=== PATIENT | male | born 1995 | race Caucasian/White ===

== ENCOUNTER 2025-02-01 09:09 | Emergency (ER) | payer SELFPAY ==
[~2025-02-01] VITALS: Ht 182.8 cm; Wt 90.7 kg
[~2025-02-01 09:09] MED LIST: AMOXICILLIN500 MG PO; NKHM; PERCOCET 325 MG1 TA7 PO; PREDNICOT10 MG PO
[2025-02-01 10:03] LABS: BASO % 0.6 % (0.0-1.0); EOS # 0.4 10*3/uL (0.0-0.4); HEMATOCRIT 42.4 % (42.0-52.0); MEAN CELL VOLUME 88.1 fl (80.0-94.0); MEAN CORPUSCULAR HGB 29.3 pg (27.0-31.0); MEAN CORPUSCULAR HGB CONC 33.3 g/dl (33.0-37.0); MEAN PLATELET VOLUME 9.7 fl (9.6-12.3); MONO # 0.3 10*3/uL (0.1-1.0); MONO % 6.1 % (3.0-9.0); NEUT % 56.2 % (47.0-73.0); PLATELET COUNT AUTOMATED 233 10*3/uL (130-400); RED BLOOD COUNT 4.81 10*6/uL (4.50-5.90); RED CELL DISTRI WIDTH 13.2 % (0-14.5); WHITE BLOOD COUNT 5.4 10*3/uL (4.8-10.8)
[2025-02-01 10:33] LABS: BUN 9 mg/dl (9-23); CHLORIDE 102 mmol/L (98-107); POTASSIUM 3.9 mmol/L (3.4-5.1)
[2025-02-01 11:13] LABS: BILIRUBIN Negative (Negative); BLOOD Negative (Negative); CLARITY Clear (Clear); COLOR Yellow (Yellow); GLUCOSE Negative (Negative); KETONE Negative (Negative); LEUKO ESTERASE Negative (Negative); NITRITE Negative (Negative); SPECIFIC GRAVITY <= 1.005 (1.001-1.030); UROBILINOGEN 0.2 E.U./dl (0.0-1.0)
[2025-02-01 11:29] LABS: WBC 0-2 wbc/hpf (0-5)
[2025-02-01] MEDS ORDERED: traMADol Hydrochloride 50 MG TAB PO ONE (12:40)
== END 2025-02-01 13:09 | disposition home or self-care (01) ==
LOC: ED 09:09
PROVIDERS: Internal Medicine
DX: N50.3 Cyst of epididymis (principal); Z79.899 Other long term (current) drug therapy; Z88.8 Allergy status to other drugs, medicaments and biological substances

== ENCOUNTER → 2025-02-24 | Outpatient (CLI) | payer MEDICAID ==
[2025-02-24 13:10] LABS: LDH 138 U/L (120-246)
[2025-02-24 16:59] LABS: BETA-HCG, TUMOR MARKER < 3.0 mIU/mL (0-3)
== END | disposition home or self-care (01) ==
LOC: LAB 12:20
PROVIDERS: ATTEND Urology
DX: N50.89 Other specified disorders of the male genital organs (principal)